=== PATIENT | male | born 1945 | race Caucasian/White ===

== ENCOUNTER 2017-05-12 07:25 | Day surgery (SDC) | payer OTHER, MEDICARE ==
[2017-05-12] MEDS ORDERED: DIAZEPAM 5 MG TAB PO ONE (07:29)
[2017-05-12] MEDS ORDERED: diphenhydrAMINE 25 MG CAP PO ONE (07:29)
[2017-05-12] MEDS ORDERED: BACITRACIN IRRIGATION/NS 50,000 UNITS/1,000 ML BTL IRR ONE (07:29)
[2017-05-12] MEDS ORDERED: NS 1,000 ML IV ONE (07:29)
[2017-05-12] MEDS ORDERED: VANCOMYCIN HCL/NORMAL SALINE 250 ML IV ONE (07:31)
--- NOTE | 2017-05-12 07:56 | CPEKG ---
Heart Rate: 53 RR Interval: 1132 P-R Interval: 178 QRSD Interval: 144 QT Interval: 500 QTC Interval: 470 P Keo: 0 QRS Keo: -85 T Wave Keo: 82 EKG Severity - ABNORMAL ECG - EKG Impression: VENTRICULAR-PACED RHYTHM Electronically Signed By: Rahul Cheek 12-May-2017 17:33:13
[2017-05-12] MEDS ORDERED: LIDO/EPI 1% **for epidural** 30 ML SDV ONE (08:13)
[2017-05-12] MEDS ORDERED: LIDOCAINE 1% 300 MG/30 ML SDV ONE (08:13)
[2017-05-12] MEDS ORDERED: BUPIVACAINE 0.5% 30 ML SDV ONE (08:14)
[2017-05-12] MEDS ORDERED: fentaNYL 100 MCG/2 ML INJ ONE (08:14)
[2017-05-12] MEDS ORDERED: MIDAZOLAM 2 MG/2 ML VIAL ONE (08:14)
[2017-05-12 08:16] LABS: % IMMATURE GRANULYOCYTES 0.2 % (0.0-1.1); ABSOLUTE IMMATURE GRANULOCYTES 0.01 10^3/uL (0.00-0.10); ADD DIFF? NO; ADD MORPH? NO; ADD SCAN? NO; ATYPICAL LYMPHOCYTE FLAG 20 (0-99); FRAGMENT RBC FLAG 0 (0-99); HEMATOCRIT 43.8 % (40.0-51.0); HEMOGLOBIN 14.4 g/dL (13.7-17.5); LEFT SHIFT FLG 0 (0-99); LIPEMIA HEMOLYSIS FLAG 80 (0-99); MEAN CELL HEMOGLOBIN 31.7 pg (27.9-34.1); MEAN CELL HEMOGLOBIN CONCENTR. 32.9 g/dL (32.4-36.7); MEAN CELL VOLUME 96.5 fL (81.5-99.8); MEAN PLATELET VOLUME 13.5 fL (8.7-11.7); PLATELET CLUMPS FLAG 20 (0-99); PLATELET COUNT 141 10^3/uL (150-400); RED BLOOD CELL COUNT 4.54 10^6/uL (4.40-6.38); RED CELL DISTRIBUTION WIDTH 12.2 % (11.5-15.2)
[2017-05-12 08:20] LABS: INR 1.17 (0.83-1.16); PROTIME(PATIENT) 14.9 SEC (12.0-15.0)
[2017-05-12 08:26] LABS: ANION GAP 11 mEq/L (8-16); CALCIUM 9.1 mg/dL (8.5-10.4); CARBON DIOXIDE 23 mEq/l (22-31); CHLORIDE 109 mEq/L (97-110); CREATININE 0.8 mg/dL (0.7-1.3); GLOMERULAR FILTRATION RATE > 60; GLUCOSE 89 mg/dL (70-100); POTASSIUM 4.2 mEq/L (3.5-5.2); SODIUM 143 mEq/L (134-144)
--- NOTE | 2017-05-12 10:11 | EPPROC ---
Electrophysiology Procedure Note: PROCEDURE PERFORMED: 1. AV Pacemaker generator change INDICATION: Pacemaker generator at SUE Bradycardia PROCEDURE NOTE: Patient presented to the cardiac catheterization laboratory in a fasting, postabsorptive state. EPRN administered sedation. The left infraclavicular area was prepped and draped in the usual sterile fashion. Lidocaine plus bupivacaine was used for local anesthesia. Using a combination of blunt and sharp dissection and electrocautery, the dissection was carried down to the prepectoral fascia and the existing pacemaker pocket was opened. The pacemaker generator was disconnected from the leads and the lead thresholds and impedance were checked. The pacemaker pocket was copiously irrigated with antibiotic solution. The pocket was again inspected for any bleeding. The leads were attached to the pacemaker securely. The pacemaker was inserted into the pocket and secured in place with a nonabsorbable suture. The pacemaker pocket was closed in 3 layers with absorbable monocryl sutures and shaheen. Appropriate dressing was applied. The patient left the cardiac catheterization laboratory in stable condition. Serial Numbers: 1. Device [employer] Eluna [id number] [facility] [id number] 2. Atrial Lead [employer]tronic 4076-45 [id number] 3. Ventricular Lead [employer]tronic 4076-52 [id number] Stimulation Thresholds & Impedance Measurements: 1. Atrial Lead P 2.6 mV 0.6 V 0.4 ms 370 ohm 2. Ventricular Lead R 9.7 mV 1 V 0.4 ms 390 ohm [place] Pacing Parameters 1. Pacing mode DDD CLS 2. Lower rate 60 ppm 3. Upper tracking rate 130 ppm 4. Upper sensor rate 130 ppm 5. AV delay increased to 300 ms to decrease V pacing, [place] conduction present at 300 ms Patient Problems: Problems Problem Status Onset Bradycardia Acute
== END 2017-05-12 11:15 | disposition home or self-care (01) ==
LOC: FCATH 07:25
PROVIDERS: ATTEND Internal Medicine Cardiovascular Disease
PROC: 0JH607Z Insertion of Cardiac Resynchronization Pacemaker Pulse Generator into Chest Subcutaneous Tissue and Fascia, Open Approach (ICD-10-PCS; principal; 2017-05-12)
PROC: 0JPT0PZ Removal of Cardiac Rhythm Related Device from Trunk Subcutaneous Tissue and Fascia, Open Approach (ICD-10-PCS; principal; 2017-05-12)
DX: Z45.010 Encounter for checking and testing of cardiac pacemaker pulse generator [battery] (principal); I49.5 Sick sinus syndrome; I48.91 Unspecified atrial fibrillation; G62.9 Polyneuropathy, unspecified; I10 Essential (primary) hypertension; G47.33 Obstructive sleep apnea (adult) (pediatric); Z98.1 Arthrodesis status; Z96.619 Presence of unspecified artificial shoulder joint; Z88.0 Allergy status to penicillin
CPT/HCPCS: C1785; J2250; J3010; J3370

== ENCOUNTER → 2017-06-12 | Outpatient (CLI) | payer OTHER, MEDICARE | LOC: BHFA 10:45 | PROVIDERS: ATTEND Internal Medicine Cardiovascular Disease | DX: I48.91 Unspecified atrial fibrillation (principal) ==

== ENCOUNTER → 2017-09-13 | Outpatient (CLI) | payer OTHER, MEDICARE | LOC: SBRMNEURO 21:30 | PROVIDERS: ATTEND Internal Medicine Sleep Medicine | DX: G47.33 Obstructive sleep apnea (adult) (pediatric) (principal) ==

== ENCOUNTER → 2018-12-16 | Outpatient (CLI) | payer OTHER, MEDICARE | LOC: CIMAGING 10:23 | PROVIDERS: ATTEND Family Medicine | DX: M25.551 Pain in right hip (principal) | CPT/HCPCS: 73502-PO ==

== ENCOUNTER → 2019-01-06 | Outpatient (CLI) | payer OTHER, MEDICARE | LOC: BHFA 09:00 | PROVIDERS: ATTEND Internal Medicine Interventional Cardiology | DX: I47.2 Ventricular tachycardia (principal) | CPT/HCPCS: 78452; 93017; A9500; J2785 ==

== ENCOUNTER → 2019-01-21 | Outpatient (CLI) | payer OTHER, MEDICARE | LOC: BHFA 14:45 | PROVIDERS: ATTEND Internal Medicine Cardiovascular Disease | DX: I48.91 Unspecified atrial fibrillation (principal); I47.1 Supraventricular tachycardia; Z95.0 Presence of cardiac pacemaker ==